=== PATIENT | male | born 1980 ===

== ENCOUNTER 2023-10-17 16:05 | Outpatient (REF) | payer BC, SELFPAY ==
[2023-10-17 15:13] LABS: Anion Gap 5.2 mmol/L (3-11); BUN 31 mg/dL (7-18); CO2 31.8 mmol/L (21.0-32.0); Calcium 9.2 mg/dL (8.5-10.1); Calculated LDL 125 mg/dL (<100); Chloride 103 mmol/L (98-107); Cholesterol 191 mg/dL (<200); Estimated GFR 96.97 (mL/min/1.73m2); Glucose 92 mg/dL (74-106); HDL Cholesterol 42 mg/dL (40-60); Sodium 140 mmol/L (136-145); Triglyceride 120 mg/dL (<150)
== END 2023-10-17 16:06 | disposition home or self-care (01) ==
LOC: NCHCN 16:05
PROVIDERS: Visit Provider Family Medicine
DX: N40.0 Benign prostatic hyperplasia without lower urinary tract symptoms (principal); Z13.220 Encounter for screening for lipoid disorders
CPT/HCPCS: 80048; 80061

== ENCOUNTER 2024-10-17 13:58 | Outpatient (REF) | payer BC, SELFPAY ==
[2024-10-17 15:55] LABS: Calculated LDL 148 mg/dL (<100); Cholesterol 212 mg/dL (<200); HDL Cholesterol 51 mg/dL (40-60); Triglyceride 65 mg/dL (<150)
== END 2024-10-17 13:59 | disposition home or self-care (01) ==
LOC: NCHCN 13:58
PROVIDERS: Visit Provider Family Medicine
DX: Z13.220 Encounter for screening for lipoid disorders (principal)
CPT/HCPCS: 80061